=== PATIENT | male | born 1965 | race Caucasian/White ===

== ENCOUNTER 2017-02-23 20:57 | Emergency (ER) | payer BC ==
[2017-02-23] MEDS ORDERED: Lidocaine 1% 20 ML MDV INJECT ONE (21:07)
[2017-02-23] MEDS ORDERED: Diphtheria,Pertussis(Acell),Tetanus Vaccine 0.5 ML Syringe IM ONE (21:08)
--- NOTE | 2017-02-23 21:10 | EDM.PDOC ---
ED HPI GENERAL MEDICAL PROBLEM - General Chief Complaint: Laceration Stated Complaint: CUT ON LT HAND FINGER Time Seen by Provider: 02/23/17 21:00 Source of Information: Reports: Patient History Limitations: Reports: No Limitations - History of Present Illness INITIAL COMMENTS - FREE TEXT/NARRATIVE: Presents reporting he was using a utility knife with his right hand to cut a piece of plastic when it slipped and he lacerated the palmar aspect of his left third finger. He does not know when he last had a tetanus shot. 4 digit Pain Score (Numeric/FACES): 5 ED ROS GENERAL - Review of Systems Review Of Systems: ROS reveals no pertinent complaints other than HPI. ED EXAM, SKIN/RASH Exam: See Below Exam Limited By: No Limitations General Appearance: Alert, No Apparent Distress Ears: Normal External Exam Nose: Normal Inspection Throat/Mouth: Normal Inspection Head: Atraumatic, Normocephalic Neck: Normal Inspection Respiratory/Chest: No Respiratory Distress Cardiovascular: Normal Peripheral Pulses GI/Abdominal: Soft Extremities: Other (Left third digit 1.5 cm lunar-shaped laceration between the PIP and DIP joint. Full range of motion without hesitation or limitation of both flexion and extension. CMS intact distally) Neurological: Alert, Oriented Psychiatric: Normal Affect, Normal Mood Skin: Warm, Dry, Intact, Normal Color, No Rash ED SKIN PROCEDURES - Laceration/Wound Repair Left Middle Finger Lac/Wound length In cm: 2 Appearance: Subcutaneous Distal NVT: Neuro & Vascular Intact, No Tendon Injury Anesthetic Type: Local Local Anesthesia - Lidocaine (Xylocaine): 1% Plain Local Anesthetic Volume: 4cc Skin Prep: Chlorhexidine (Hibiciens) Exploration/Debridement/Repair: Wound Explored, in a Bloodless Field, Explored to Base Closed with: Sutures Suture Size: 4-0 # of Sutures: 5 Course - Vital Signs Last Recorded V/S: Last Vital Signs Temp 36.3 C 02/23/17 21:42 Pulse 68 02/23/17 21:42 Resp 18 02/23/17 21:42 BP 145/92 H 02/23/17 21:42 Pulse Ox 95 02/23/17 21:42 - Orders/Labs/Meds Orders: Active Orders 24 hr Category Date Time Status Vaccines to be Administered [RC] PER UNIT ROUTINE Care 02/23/17 21:08 Ordered Meds: Medications Discontinued Medications Generic Name Dose Route Start Last Admin Trade Name Freq PRN Reason Stop Dose Admin Bacitracin 1 dose 02/23/17 21:31 02/23/17 21:34 Bacitracin Oint 1 Gm TOP 02/23/17 21:32 1 dose ONETIME ONE Administration Diphtheria/Tetanus/Acell Pertussis 0.5 ml 02/23/17 21:08 02/23/17 21:34 Adacel IM 02/23/17 21:09 0.5 ml .ONCE ONE Administration Lidocaine HCl 20 ml 02/23/17 21:07 02/23/17 21:34 Xylocaine 1% INJECT 02/23/17 21:08 20 ml ONETIME ONE Administration Departure - Departure Time of Disposition: 21:47 Disposition: Home, Self-Care 01 Condition: Good Clinical Impression: Laceration - Discharge Information Forms: ED Department Discharge Additional Instructions: 1. Watch for signs of infection: Redness swelling or purulent drainage, report promptly 2. Keep clean and dry. Bacitracin twice a day and covered while working. 3. Suture removal 10-14 days. - My Orders Last 24 Hours: My Active Orders 02/23/17 21:08 Vaccines to be Administered [RC] PER UNIT ROUTINE - Assessment/Plan Last 24 Hours: My Active Orders 02/23/17 21:08 Vaccines to be Administered [RC] PER UNIT ROUTINE
[2017-02-23] MEDS ORDERED: Bacitracin Oint 1 GM U/D Packet TOP ONE (21:31)
[2017-02-23 21:42] VITALS: BP 145/92
== END 2017-02-23 22:03 | disposition home or self-care (01) ==
LOC: MW.ED 20:57
DX: S61.213A Laceration without foreign body of left middle finger without damage to nail, initial encounter (principal); Z23 Encounter for immunization; W26.0XXA Contact with knife, initial encounter
CPT/HCPCS: 12001; 90471; 90715; 99283; 99283-25

== ENCOUNTER 2023-04-08 07:55 | Emergency (ER) | payer BC ==
[2023-04-08] MEDS ORDERED: Ibuprofen 600 MG Tab PO ONE (08:28)
[2023-04-08] MEDS ORDERED: Morphine 15 MG Tab PO ONE (08:28)
[2023-04-08] MEDS ORDERED: Lidocaine 1% 5 ML VIAL INJECT ONE (08:28)
[2023-04-08] MEDS ORDERED: Acetaminophen 500 MG Tab PO ONE (08:28)
[2023-04-08] MEDS ORDERED: Bupivacaine 0.25% 10 ML SDV INJECT ONE (08:28)
[2023-04-08] MEDS ORDERED: Bacitracin Oint 1 GM U/D Packet TOP ONE (10:16)
[2023-04-08 10:32] VITALS: BP 132/78; PULSE 84
== END 2023-04-08 10:31 | disposition home or self-care (01) ==
LOC: MW.ED 07:55
DX: S91.201A Unspecified open wound of right great toe with damage to nail, initial encounter (principal); W23.0XXA Caught, crushed, jammed, or pinched between moving objects, initial encounter
CPT/HCPCS: 11730; 99282; A9270; J3490; 99283